=== PATIENT | male | born 1960 | race Caucasian/White ===

== ENCOUNTER 2018-08-10 06:29 | Day surgery (SDC) | payer OTHER ==
[~2018-08-10] VITALS: Ht 167.6 cm; Wt 83.9 kg
[~2018-08-10 06:29] MED LIST: ALPRAZOLAM0.5 MG PO; AMLODIPINE5 MG PO; GABAPENTIN300 M2 PO; HM IBUPROFEN200 MG PO; IPRATROPIUM BR0.03 %; METHOCARBAM500 MG PO; PERCOCET 5/325M1 TAB PO; PRAVASTATIN10 MG PO; STIOLTO RESPIMA1 AER IN; STOOL SOFTEN240 MG PO
[2018-08-10 08:34] VITALS: BP 129/78
== END 2018-08-10 08:53 | disposition home or self-care (01) | DRG 387 ==
LOC: ENDO 06:29
PROVIDERS: ATTEND Internal Medicine Gastroenterology
PROC: 0DBK8ZX Excision of Ascending Colon, Via Natural or Artificial Opening Endoscopic, Diagnostic (ICD-10-PCS; principal; 2018-08-10)
PROC: 0DBL8ZX Excision of Transverse Colon, Via Natural or Artificial Opening Endoscopic, Diagnostic (ICD-10-PCS; 2018-08-10)
PROC: 0DBP8ZX Excision of Rectum, Via Natural or Artificial Opening Endoscopic, Diagnostic (ICD-10-PCS; 2018-08-10)
PROC: 0DBB8ZX Excision of Ileum, Via Natural or Artificial Opening Endoscopic, Diagnostic (ICD-10-PCS; 2018-08-10)
PROC: 0DBM8ZX Excision of Descending Colon, Via Natural or Artificial Opening Endoscopic, Diagnostic (ICD-10-PCS; 2018-08-10)
DX: K51.90 Ulcerative colitis, unspecified, without complications (principal); K64.4 Residual hemorrhoidal skin tags; K57.30 Diverticulosis of large intestine without perforation or abscess without bleeding; K62.89 Other specified diseases of anus and rectum; K29.70 Gastritis, unspecified, without bleeding; K44.9 Diaphragmatic hernia without obstruction or gangrene; I10 Essential (primary) hypertension; E78.00 Pure hypercholesterolemia, unspecified; Z86.010 Personal history of colon polyps